=== PATIENT | female | born 1960 | race Hispanic/Latino ===

== ENCOUNTER → 2024-09-20 | Outpatient (RCR) | payer MEDICARE | LOC: PT 09:20 | PROVIDERS: ATTEND Family Medicine Adult Medicine | DX: M13.851 Other specified arthritis, right hip (principal) ==

== ENCOUNTER 2024-09-24 06:51 | Outpatient (RCR) | payer MEDICARE | END 2024-10-18 | LOC: PT 06:51 | PROVIDERS: ATTEND Family Medicine Adult Medicine | DX: M13.851 Other specified arthritis, right hip (principal) ==

== ENCOUNTER → 2025-02-12 | Outpatient (REF) | payer MEDICARE | LOC: MAMMO 10:12 | PROVIDERS: ATTEND Family Medicine Adult Medicine | DX: Z12.31 Encounter for screening mammogram for malignant neoplasm of breast (principal) | CPT/HCPCS: 77067 ==